=== PATIENT | female | born 1990 | race Caucasian/White ===

== ENCOUNTER 2017-02-16 22:54 | Emergency (ER) | payer MEDICAID, OTHER ==
[~2017-02-16] VITALS: Ht 160 cm; Wt 66.0 kg
[2017-02-16 22:57] VITALS: Ht 160 cm; Wt 66.0 kg
--- NOTE | 2017-02-16 23:25 | ERD ---
ER Documentation Chief Complaint Date/Time DATE: 02/16/17 TIME: 23:19 Chief Complaint 11 wks , vag bleeding today HPI 26-year-old female presents here in emergency department for complaints of vaginal bleeding started today. Patient felt that she passed some tissue. Patient is approximately 11 weeks . 3 para 2 0. LMP . Patient is complaining of pelvic pain cramping pain, 6/10 scale, accompanying the vaginal bleeding. Patient did not take any medications to symptoms. ROS All systems reviewed and are negative except as per history of present illness. Medications Home Meds Reported Medications [none] Unknown Strength No Conflict Check 02/16/17 Allergies Allergies: Coded Allergies: No Known Allergy (Unverified , 02/16/17) PMhx/Soc Medical and Surgical Hx: pt denies Medical Hx, pt denies Surgical Hx History of Surgery: No Anesthesia Reaction: No Hx Neurological Disorder: No Hx Respiratory Disorders: No Hx Cardiac Disorders: No Hx Psychiatric Problems: No Hx Miscellaneous Medical Probl: No Hx Alcohol Use: No Hx Substance Use: No Hx Tobacco Use: No FmHx Family History: No coronary disease, No diabetes, No other Physical Exam Vitals Vital Signs Date Time Temp Pulse Resp B/P Pulse Ox O2 Delivery O2 Flow Rate FiO2 02/16/17 22:57 99.7 101 20 115/56 98 Physical Exam GENERAL: The patient is well developed and appropriate for usual state of health, in no apparent distress. CHEST: Clear to auscultation bilaterally. There are no rales, wheezes or rhonchi. HEART: Regular rate and rhythm. No murmurs, clicks, rubs or gallops. No S3 or S4. ABDOMEN: Soft, nontender and nondistended. Good bowel sounds. No rebound or guarding. No gross peritonitis. No gross organomegaly or masses. No Harris sign or McBurney point tenderness. BACK: No midline or flank tenderness. EXTREMITIES: Equal pulses bilaterally. There is no peripheral clubbing, cyanosis or edema. No focal swelling or erythema. Full range of motion. Grossly neurovascularly intact. NEURO: Alert and oriented. Cranial nerves 2-12 intact. Motor strength in all 4 extremities with 5/5 strength. Sensation grossly intact. Normal speech and gait. SKIN: There is no apparent rash or petechia. The skin is warm and dry. HEMATOLOGIC AND LYMPHATIC: There is no evidence of excessive bruising or lymphedema. No gross cervical, axillary, or inguinal lymphadenopathy. Vaginal:. Moderate amount of blood in the vaginal vault, some parts of the placenta was noted in the vaginal canal, this was removed without any difficulty , the cervical os is closed. No active bleeding noted at this time. No cervical motion tenderness or adnexal tenderness noted. Patient's tissue was examined and it was consistent with a fetus that is possibly at second trimester , this was sent to pathology. Result Diagram: 02/16/17 2335 02/16/17 2335 Results 24 hrs Laboratory Tests Test 02/16/17 23:35 02/17/17 02:04 White Blood Count 13.310^3/ul Red Blood Count 4.2210^6/ul Hemoglobin 13.3g/dl Hematocrit 38.3% Mean Corpuscular Volume 90.8fl Mean Corpuscular Hemoglobin 31.5pg Mean Corpuscular Hemoglobin Concent 34.7g/dl Red Cell Distribution Width 12.4% Platelet Count 36765^3/UL Mean Platelet Volume 10.1fl Neutrophils % 73.1% Lymphocytes % 19.5% Monocytes % 5.9% Eosinophils % 0.5% Basophils % 0.2% Nucleated Red Blood Cells % 0.0/100WBC Neutrophils # 9.710^3/ul Lymphocytes # 2.610^3/ul Monocytes # 0.810^3/ul Eosinophils # 0.110^3/ul Basophils # 0.010^3/ul Nucleated Red Blood Cells # 0.010^3/ul Sodium Level 131mmol/L Potassium Level 3.9mmol/L Chloride Level 100mmol/L Carbon Dioxide Level 23mmol/L Anion Gap 12 Blood Urea Nitrogen 9mg/dl Creatinine 0.53mg/dl Glucose Level 98mg/dl Calcium Level 9.3mg/dl Total Bilirubin 0.3mg/dl Direct Bilirubin 0.00mg/dl Indirect Bilirubin 0.3mg/dl Aspartate Amino Transf (AST/SGOT) 19IU/L Alanine Aminotransferase (ALT/SGPT) 26IU/L Alkaline Phosphatase 58IU/L Total Protein 7.1g/dl Albumin 4.1g/dl Globulin 3.00g/dl Albumin/Globulin Ratio 1.36 Beta HCG, Quantitative 629298.0mIU/ml Bedside Urine pH (LAB) 6.0 Bedside Urine Protein (LAB) Trace Bedside Urine Glucose (UA) Negative Bedside Urine Ketones (LAB) Negative Bedside Urine Blood 3+ Bedside Urine Nitrite (LAB) Negative Bedside Urine Leukocyte Esterase (L Negative Current Medications Medications (Trade) Dose Ordered Sig/Yovanny Route PRN Reason Start Time Stop Time Status Last Admin Dose Admin Ketorolac Tromethamine (Toradol) 60 mg ONCE ONCE IM 02/17/17 01:41 02/17/17 01:42 DC 02/17/17 01:49 PROCEDURE: US OB. CLINICAL INDICATION: . Vaginal bleeding. TECHNIQUE: Multiple sonographic images of the pelvis were obtained. Transabdominal and transvaginal views of the pelvis are available for review. The images were reviewed on a PACS workstation. COMPARISON: No prior studies are available for comparison. FINDINGS: Uterus is normal size at 11.5 x 6.5 x 7.3 cm. No intrauterine gestational sac, pole or heart motion is identified. The endometrium is thickened at 2.35 cm and heterogeneous with small amount color Doppler flow. Uterus is otherwise unremarkable. The ovaries are normal in size and echogenicity with normal vascular flow. Right ovary is 2.8 x 1.9 x 2.1 cm. Left ovary 3.2 x 1.8 x 2 cm. The adnexa are unremarkable. There is no adnexal mass. There is no free fluid. IMPRESSION: No live intrauterine identified. Thickened heterogeneous endometrium. Considerations include a missed , early intrauterine and ectopic . No adnexal mass or free fluid to suggest ectopic although this cannot be excluded. RPTAT: [facility] .Demetrio España MD, MD Date Time Electronically viewed and signed by .Demetrio España MD, MD on 02/17/2017 00:30 .K/ CC: KIN HAINES NP Procedures/MDM Medical Decision Making: Patients vaginal bleeding is most likely consistent of spontaneous at second trimester, tissue was sent to pathology , was able to pass it at home. Patient does not show any evidence of hypovolemic shock. Patients hemoglobin and hematocrit is stable. There is low suspicion for ectopic . RONN results show no intrauterine but viable tissue was seen and was sent to pathology. BetaHCG Quantitative is still high since patient just recently had a spontaneous . The patient is Rh+, does not need RhoGAM this time. There is no signs of symptoms of dehydration. There is low suspicion for sepsis. Patient appears well and is hemodynamically stable. Disposition: Home. Condition: Stable Prescription: Ibuprofen, [place], doxycycline Instructions: Patient is advised to do bed rest, avoid heavy lifting, and avoid having sex until cleared by OB doctor. Patient is advised to follow up with OB doctor or here at the ER in 48 hours for reevaluation of symptoms. Patient is advised that is symptoms are worst, severe bleeding, dizziness, severe abdominal pain, fever, worst signs and symptoms to return to the emergency department immediately. Departure Diagnosis: Primary Impression: Spontaneous in second trimester Condition: Stable Patient Instructions: Miscarriage, Spontaneous (Completed) Additional Instructions: Patient is advised to do bed rest, avoid heavy lifting, and avoid having sex until cleared by OB doctor. Patient is advised to follow up with OB doctor or here at the ER in 48 hours for reevaluation of symptoms. Patient is advised that is symptoms are worst, severe bleeding, dizziness, severe abdominal pain, fever, worst signs and symptoms to return to the emergency department immediately. KIN HAINES NP February 16, 2017 23:25
[2017-02-16 23:44] LABS: ADD SCAN DIFF NO
[2017-02-16 23:48] LABS: BASOPHILS % 0.2 % (0.0-2.0); EOSINOPHILS # 0.1 10^3/ul (0.0-0.5); EOSINOPHILS % 0.5 % (0.0-7.0); HEMATOCRIT 38.3 % (37.0-47.0); HEMOGLOBIN 13.3 g/dl (12.0-16.0); LYMPHOCYTES # 2.6 10^3/ul (0.8-2.9); LYMPHOCYTES % 19.5 % (15.0-51.0); MEAN CORPUSCULAR HEMOGLOBIN 31.5 pg (29.0-33.0); MEAN CORPUSCULAR HGB CONC 34.7 g/dl (32.0-37.0); MEAN CORPUSCULAR VOLUME 90.8 fl (82.0-101.0); MEAN PLATELET VOLUME 10.1 fl (7.4-10.4); MONOCYTE # 0.8 10^3/ul (0.3-0.9); MONOCYTES % 5.9 % (0.0-11.0); NEUTROPHIL # 9.7 10^3/ul (1.6-7.5); NEUTROPHILS % 73.1 % (39.0-77.0); PLATELET COUNT 276 10^3/UL (140-415); RED BLOOD COUNT 4.22 10^6/ul (4.20-5.40); RED CELL DISTRIBUTION WIDTH 12.4 % (11.5-14.5); WHITE BLOOD COUNT 13.3 10^3/ul (4.8-10.8)
[2017-02-17 00:09] LABS: ALBUMIN 4.1 g/dl (3.3-4.9); ALBUMIN/GLOBULIN RATIO 1.36; BILIRUBIN,INDIRECT 0.3 mg/dl (0-1.1); BILIRUBIN,TOTAL 0.3 mg/dl (0.2-1.3); CALCIUM 9.3 mg/dl (8.4-10.2); CREATININE 0.53 mg/dl (0.44-1.00); POTASSIUM 3.9 mmol/L (3.5-5.1); TOTAL PROTEIN 7.1 g/dl (6.1-8.1)
--- NOTE | 2017-02-17 00:31 | RADRPT ---
PROCEDURE: US OB. CLINICAL INDICATION: . Vaginal bleeding. TECHNIQUE: Multiple sonographic images of the pelvis were obtained. Transabdominal and transvagin al views of the pelvis are available for review. The images were reviewed on a PACS workstation. COMPARISON: No prior studies are available for comparison. FINDINGS: Uterus is normal size at 11.5 x 6.5 x 7.3 cm. No intrauterine gestational sac, pole or heart motion is identified. The endometrium is thickened at 2.35 cm and heterogeneous with small amount c olor Doppler flow. Uterus is otherwise unremarkable. The ovaries are normal in size and echogenici ty with normal vascular flow. Right ovary is 2.8 x 1.9 x 2.1 cm. Left ovary 3.2 x 1.8 x 2 cm. The adnexa are unremarkable. There is no adnexal mass. There is no free fluid. IMPRESSION: No live intrauterine identified. Thickened heterogeneous endometrium. Considerations inc lude a missed , early intrauterine and ectopic . No adnexal mass or free fluid to suggest ectopic although this cannot be excluded. RPTAT: [facility]K .Demetrio España MD, MD Date Time Electronically viewed and signed by .Demetrio España MD, MD on 02/17/2017 00:30 .K/
[2017-02-17] MEDS ORDERED: KETOROLAC 60 MG INJ IM ONE (01:41)
[2017-02-17 02:02] LABS: URINE BLOOD (Dip) POC 3+ (NEGATIVE)
[2017-02-17] MEDS ORDERED: DOXY100T20 PO (02:08)
[2017-02-17] MEDS ORDERED: IBUP800T25 PO (02:08)
[2017-02-17] MEDS ORDERED: HYDR-906 PO (02:08)
[2017-02-17 02:43] VITALS: BP 110/67; PULSE 74; RESP 17; TEMP 99.2
== END 2017-02-17 02:43 | disposition home or self-care (01) ==
LOC: FTE 22:54
DX: O03.9 Complete or unspecified spontaneous abortion without complication (principal); R10.2 Pelvic and perineal pain
CPT/HCPCS: 76801; 76817; 80053; 81003; 84702; 85025; 86900; 86901; 88309; 96372; J1885; Z7502